=== PATIENT | male | born 1985 | race Caucasian/White ===

== ENCOUNTER 2017-12-13 18:41 | Emergency (ER) | payer OTHER ==
[~2017-12-13] VITALS: Ht 180.3 cm; Wt 100.7 kg
[2017-12-13 18:50] VITALS: BP 144/81
--- NOTE | 2017-12-13 18:53 | NUR ---
pt sat in lab chair outside triage---md notified
[2017-12-13] MEDS ORDERED: DEXAMETHASONE 10 MG/ML VIAL IVP ONE (19:00)
[2017-12-13] MEDS ORDERED: FAMOTIDINE 20 MG/2 ML VIAL IVP ONE (19:00)
[2017-12-13] MEDS ORDERED: diphenhydrAMINE 50 MG/ML VIAL IVP ONE (19:00)
--- NOTE | 2017-12-13 19:07 | NUR ---
report given to incoming shift triage ---Monica VILLALOBOS pt remains in lab chair outside triage, awaits available room for MD vargas.
--- NOTE | 2017-12-13 19:20 | NUR ---
Patient ambulated to bed 1 with family. RN evaluating patient at bedside.
--- NOTE | 2017-12-13 19:20 | NUR ---
PATIENT PRESENTS TO ED WITH ALLERGIC REACTION TO PORK. PT STATES HE ATE PORK X1 HOUR AGO AT HOME WHEN HE STARTED ICHING ALL OVER. HE TOOK A SHOWER AND SYMPTOMS DID NOT SUBSIDE. HIVES CONTINUE TO PROGRESS AND HE CAME TO ED. PT DENIES SOB OR DYPSNEA AT THIS TIME. PT STATES NO KNOWN FOOD/MEDICATION ALLERGY THAT HE IS AWARE OF. PT STATES NO ENVIRONMENTAL CHANGES THAT HE KNOWS OF. HIVES ALL OVER TRUNK, EYES, AND NECK. PT DENIES N/V/D; SKIN IS PINK/WARM/DRY; AAOX4 WITH EVEN AND STEADY GAIT; LUNGS CLEAR BL; HR EVEN AND REGULAR; PT DENIES ANY FEVER, CP, SOB, OR COUGH AT THIS TIME; PATIENT STATES PAIN OF 0/10 AT THIS TIME; VSS; PATIENT POSITIONED FOR COMFORT; HOB ELEVATED; BEDRAILS UP X2; BED DOWN. ER MD MADE AWARE OF PT STATUS. CONTINUE TO MONITOR.
--- NOTE | 2017-12-13 20:00 | NUR ---
PT IN BED RESTING WITH EYES OPEN. PT STATES NO ITCHING, SOB, OR DYSPNEA AT THIS TIME. VSS. POSITIONED FOR COMFORT. FAMILY AT BEDSIDE. ER MD AWARE. CONTINUE TO MOINTOR.
[2017-12-13 22:00] VITALS: BP 144/81
--- NOTE | 2017-12-13 22:00 | NUR ---
Patient discharged with v/s stable. Written and verbal after care instructions given and explained. Patient alert, oriented and verbalized understanding of instructions. Ambulatory with steady gait. All questions addressed prior to discharge. ID band removed. Patient advised to follow up with PMD. Rx of Pepcid, Prednisone, and Benadryl given. Patient educated on indication of medication including possible reaction and side effects. Opportunity to ask questions provided and answered.
== END 2017-12-13 22:00 | disposition home or self-care (01) ==
LOC: MED 18:41
DX: L50.9 Urticaria, unspecified (principal); T78.1XXA Other adverse food reactions, not elsewhere classified, initial encounter; X58.XXXA Exposure to other specified factors, initial encounter; F17.210 Nicotine dependence, cigarettes, uncomplicated
CPT/HCPCS: 81002; 96374; 96375; 99284; J1100; J1200; J3490

== ENCOUNTER 2020-10-04 22:06 | Emergency (ER) | payer OTHER ==
[~2020-10-04] VITALS: Ht 180.3 cm; Wt 83.9 kg
[2020-10-04 22:09] VITALS: BP 138/89
--- NOTE | 2020-10-04 22:15 | NUR ---
PT. IS A 35 Y/O MALE THAT CAME INTO ED WITH C/O OF HIGH BLOOD PRESSURE. HE STATES THAT HE WENT TO HIS DOCTOR YESTERDAY AND HE WAS DIAGNOSED WITH DIABETES. HE STATES THAT HIS BLOOD SUGAR WAS OVER 600. PT. STATES THAT HE HAS 0/10 ON THE PAIN SCALE. SKIN IS PINK/WARM/DRY; AAOX4 WITH EVEN AND STEADY GAIT; HR EVEN AND REGULAR; PT DENIES ANY FEVER, CP, SOB, OR COUGH AT THIS TIME; VSS; PATIENT POSITIONED FOR COMFORT; HOB ELEVATED; BEDRAILS UP X2; BED DOWN. ER MD MADE AWARE OF PT STATUS. PMH: HIGH CHOLESTEROL, HYPERTENSION, DIABETES ALLERGIES: NKA
[2020-10-04] MEDS: NACL 0.9% 1,000 ML IV ONE (23:12)
[2020-10-04 23:44] LABS: BASOPHILS # (AUTO) 0.1 K/uL (0.00-0.22); BASOPHILS % (AUTO) 1.9 % (0.0-2.0); EOSINOPHILS # (AUTO) 0.1 K/uL (0-0.4); EOSINOPHILS % (AUTO) 2.3 % (0.0-4.0); HEMATOCRIT 40.1 % (36-52); HEMOGLOBIN 14.2 g/dL (12.0-18.0); LYMPHOCYTES # (AUTO) 1.6 K/uL (2.0-11.5); LYMPHOCYTES % (AUTO) 29.7 % (20.5-51.1); MEAN CORPUSCULAR HEMOGLOBIN 34 pg (27-31); MEAN CORPUSCULAR HGB CONC 35 g/dL (33-37); MEAN CORPUSCULAR VOLUME 96.7 fL (80-94); MONOCYTES # (AUTO) 0.4 K/uL (0.8-1.0); MONOCYTES % (AUTO) 7.3 % (1.7-9.3); NEUTROPHILS # (AUTO) 3.2 K/uL (1.8-7.7); NEUTROPHILS % (AUTO) 58.8 % (42.2-75.2); PLATELET COUNT (AUTO) 158 K/uL (140-450); RED BLOOD CELL COUNT(AUTO) 4.15 MIL/uL (4.20-6.10); RED CELL DISTRIBUTION WIDTH 13.4 % (11.6-13.7); WHITE BLOOD COUNT (AUTO) 5.4 K/uL (4.8-10.8)
[2020-10-05 00:09] LABS: ALBUMIN 3.3 g/dL (3.4-5.0); ANION GAP 11.8 (8-16); CARBON DIOXIDE 27.8 mmol/L (21-32); CREATININE 0.6 mg/dL (0.6-1.3); POTASSIUM 3.6 mmol/L (3.5-5.1); TOTAL BILIRUBIN 0.5 mg/dL (0.0-1.0)
--- NOTE | 2020-10-05 00:16 | NUR ---
NORMAL SALINE FINISHED INFUSING.
[2020-10-05 00:55] VITALS: BP 138/89
--- NOTE | 2020-10-05 00:55 | NUR ---
Patient discharged with v/s stable. Written and verbal after care instructions given and explained. Patient verbalized understanding. Ambulatory with steady gait. All questions addressed prior to discharge. Advised to follow up with PMD.
== END 2020-10-05 00:55 | disposition home or self-care (01) ==
LOC: MED 22:06
DX: E11.65 Type 2 diabetes mellitus with hyperglycemia (principal); R78.4 Finding of other drugs of addictive potential in blood; I10 Essential (primary) hypertension
CPT/HCPCS: 80053; 81002; 85025; 96360; 99283; J7030; 36415